=== PATIENT | female | born 1985 | race Caucasian/White ===

== ENCOUNTER 2018-05-16 10:15 | Emergency (ER) | payer SELFPAY ==
[2018-05-16] MEDS ORDERED: KETOROLAC 30 MG/ML INJ ONE (10:58)
--- NOTE | 2018-05-16 11:27 | ER ---
Nurse's Notes [facility] Name: Ira Fraser Age: 32 yrs Sex: Female : 1985 Arrival Date: 05/16/2018 Time: 10:17 Bed 14 Private MD: None, None Diagnosis: Strain of muscle, fascia and tendon at neck level Presentation: 05/16 10:29 Presenting complaint: Patient states: my neck started hurting yesterday and i can tw2 hardly turn my neck to the left. Transition of care: patient was not received from another setting of care. Onset of symptoms was May 16, 2018. Risk Assessment: Do you want to hurt yourself or someone else? Patient reports no desire to harm self or others. Initial Sepsis Screen: Does the patient meet any 2 criteria? No. Patient's initial sepsis screen is negative. Does the patient have a suspected source of infection? No. Patient's initial sepsis screen is negative. Care prior to arrival: None. 10:29 Method Of Arrival: Ambulatory tw2 10:29 Acuity: PATRICA 4 tw2 Triage Assessment: 11:50 General: Appears in no apparent distress. Behavior is calm, cooperative, appropriate tw2 for age. 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 - Social history:: Smoking status: . - Ebola Screening: : Patient denies travel to an Ebola-affected area in the 21 days before illness onset. Screenin:01 Abuse screen: Denies threats or abuse. Nutritional screening: No deficits noted. tw2 Tuberculosis screening: No symptoms or risk factors identified. Fall Risk None identified. Assessment: 10:30 General: Appears in no apparent distress. Behavior is calm, cooperative, appropriate tw2 for age. Pain: Complains of pain in left scapular area and left trapezius. Neuro: Level of Consciousness is awake, alert, obeys commands, Oriented to person, place, time, situation. Cardiovascular: Denies chest pain, shortness of breath, Patient's skin is warm and dry. Respiratory: Airway is patent Respiratory effort is even, unlabored. GI: No signs and/or symptoms were reported involving the gastrointestinal system. : No signs and/or symptoms were reported regarding the genitourinary system. EENT: No signs and/or symptoms were reported regarding the EENT system. Derm: No signs and/or symptoms reported regarding the dermatologic system. Musculoskeletal: Reports pain in left trapezius and left scapular area. 11:51 Reassessment: Patient appears in no apparent distress at this time. No changes from tw2 previously documented assessment. Patient and/or family updated on plan of care and expected duration. Pain level reassessed. Patient is alert, oriented x 3, equal unlabored respirations, skin warm/dry/pink. Vital Signs: 10:30 BP 138 / 88; Pulse 80; Resp 18; Temp 98.0(O); Pulse Ox 100% on R/A; Pain 7/10; tw2 11:51 BP 109 / 84; Pulse 79; Resp 17; Pulse Ox 100% on R/A; tw2 ED Course: 10:17 Patient arrived in ED. sb2 10:17 None, None is Private Physician. sb2 10:27 Paulo Brian PA is PHCP. cp 10:27 Paulo Haley MD is Attending Physician. cp 10:29 Johanne Garcia, RAHAT is Primary Nurse. tw2 10:30 Triage completed. tw2 10:31 Arm band placed on. tw2 10:31 Bed in low position. Call light in reach. tw2 11:52 No provider procedures requiring assistance completed. Patient did not have IV access tw2 during this emergency room visit. Administered Medications: 10:55 Drug: TORadol 60 mg Route: IM; Site: left gluteus; tw2 11:40 Follow up: Response: No adverse reaction; Pain is unchanged, physician notified tw2 11:50 Follow up: Response: No adverse reaction; Pain is unchanged, physician notified tw2 Outcome: 11:27 Discharge ordered by MD. cp 11:52 Patient left the ED. tw2 11:52 Discharged to home ambulatory. tw2 11:52 Condition: stable 11:52 Discharge instructions given to patient, Instructed on discharge instructions, follow up and referral plans. no drinking with medication, no driving heavy equipment, medication usage, Demonstrated understanding of instructions, follow-up care, medications, Prescriptions given X 2. Signatures: Paulo Brian PA PA cp Johanne Garcia, RN RN tw2 Tasia Varela sb2
--- NOTE | 2018-05-16 11:28 | EDPHYS ---
Physician Documentation [facility] Name: Ira Fraser Age: 32 yrs Sex: Female : 1985 Arrival Date: 05/16/2018 Time: 10:17 Bed 14 Private MD: None, None ED Physician Paulo Haley HPI: 05/16 10:47 This 32 yrs old Female presents to ER via Ambulatory with complaints of Neck cp Pain, >24Hrs Old. 10:47 The patient or guardian complains of decreased range of motion, pain, that is acute, cp tenderness. The symptoms are located on the left lateral neck. Onset: The symptoms/episode began/occurred yesterday. Context: started upon awakening. Associated signs and symptoms: Pertinent negatives: fever, headache, numbness, vomiting, weakness. Modifying factors: the symptoms are aggravated by turning head to left. Severity of symptoms: in the emergency department the symptoms are unchanged, despite home interventions. 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 - Social history:: Smoking status: . - Ebola Screening: : Patient denies travel to an Ebola-affected area in the 21 days before illness onset. ROS: 10:49 Eyes: Negative for injury, pain, redness, and discharge. cp 10:49 Constitutional: Negative for body aches, chills, fever, poor PO intake. 10:49 ENT: Negative for drainage from ear(s), ear pain, sore throat, difficulty swallowing, difficulty handling secretions, hoarseness. 10:49 Neck: Positive for pain with movement, pain at rest, stiffness, tenderness, Negative for injury or acute deformity. 10:49 Cardiovascular: Negative for chest pain, edema, palpitations. 10:49 Respiratory: Negative for cough, shortness of breath, wheezing. 10:49 Abdomen/GI: Negative for abdominal pain, nausea, vomiting, and diarrhea, black/tarry stool, rectal bleeding. 10:49 Back: Positive for pain at rest, pain with movement, of the left trapezius and left scapular area, Negative for injury or acute deformity. 10:49 : Negative for urinary symptoms. 10:49 MS/extremity: Negative for decreased range of motion, paresthesias. 10:49 Skin: Negative for cellulitis, rash. 10:49 Neuro: Negative for altered mental status, dizziness, headache, numbness, tingling, weakness. 10:49 All other systems are negative. Exam: 10:52 Head/Face: Normocephalic, atraumatic. cp 10:52 Constitutional: The patient appears in no acute distress, alert, awake, non-diaphoretic, non-toxic, well developed, well nourished. 10:52 Eyes: Periorbital structures: appear normal, Conjunctiva: normal, no exudate, no injection, Sclera: no appreciated abnormality, Lids and lashes: appear normal, bilaterally. 10:52 ENT: External ear(s): are unremarkable, Nose: is normal, Mouth: Lips: moist, Oral mucosa: moist, Posterior pharynx: is normal, airway is patent, no erythema, no exudate. 10:52 Neck: External neck: swelling, is not appreciated, tenderness, that is mild, left lateral neck, ROM/movement: pain, that is moderate, with rotation to the left, limited range of motion, that is moderate, when rotating to the left, Meningeal signs: are not present, nuchal rigidity, is not appreciated, Lymph nodes: no appreciated lymphadenopathy. 10:52 Chest/axilla: Inspection: normal, Palpation: is normal, no crepitus, no tenderness. 10:52 Cardiovascular: Rate: normal, Rhythm: regular, Heart sounds: murmur, not appreciated, rub, not appreciated, gallop, not appreciated, Edema: is not appreciated. 10:52 Respiratory: the patient does not display signs of respiratory distress, Respirations: normal, no use of accessory muscles, no retractions, no splinting, no tachypnea, labored breathing, is not present, Breath sounds: are clear throughout, no decreased breath sounds, no stridor, no wheezing. 10:52 Abdomen/GI: Exam negative for discomfort, distension, guarding, Inspection: abdomen appears normal. 10:52 Back: pain, that is moderate, of the left trapezius and left scapular area. 10:52 Musculoskeletal/extremity: Exam is negative for decreased range of motion, deformity, injury. 10:52 Skin: cellulitis, is not appreciated, no rash present. 10:52 Neuro: Orientation: to person, place \T\ time. Mentation: lucid, able to follow commands, Cerebellar function: is grossly normal, Motor: moves all fours, strength is normal, Sensation: no obvious gross deficits. Vital Signs: 10:30 BP 138 / 88; Pulse 80; Resp 18; Temp 98.0(O); Pulse Ox 100% on R/A; Pain 7/10; tw2 11:51 BP 109 / 84; Pulse 79; Resp 17; Pulse Ox 100% on R/A; tw2 MDM: 10:27 Patient medically screened. radha 10:45 Differential diagnosis: C-Spine Fracture Cervical Disc Herniation cervical strain, cp Spondylolisthesis torticollis. 11:25 Data reviewed: vital signs, nurses notes, and as a result, I will discharge patient. cp 11:25 Counseling: I had a detailed discussion with the patient and/or guardian regarding: the cp historical points, exam findings, and any diagnostic results supporting the discharge/admit diagnosis, to return to the emergency department if symptoms worsen or persist or if there are any questions or concerns that arise at home. Response to treatment: the patient's symptoms have mildly improved after treatment, and as a result, I will discharge patient. Administered Medications: 10:55 Drug: TORadol 60 mg Route: IM; Site: left gluteus; tw2 11:40 Follow up: Response: No adverse reaction; Pain is unchanged, physician notified tw2 11:50 Follow up: Response: No adverse reaction; Pain is unchanged, physician notified tw2 Disposition: 05/17 08:53 Co-signature as Attending Physician, Paulo Haley MD I agree with the assessment and [facility] plan of care. Disposition: 05/16/18 11:27 Discharged to Home. Impression: Strain of muscle, fascia and tendon at neck level. - Condition is Stable. - Discharge Instructions: Muscle Strain, Neck Exercises. - Prescriptions for Cyclobenzaprine 10 mg Oral Tablet - take 1 tablet by ORAL route every 8 hours As needed no driving while taking medication; 20 tablet. Anaprox DS 550 mg Oral Tablet - take 1 tablet by ORAL route every 12 hours As needed; 20 tablet. - Medication Reconciliation Form, Thank You Letter, Antibiotic Education, Prescription Opioid Use, Work release form form. - Follow up: Private Physician; When: 1 - 2 days; Reason: pain continues. - Problem is new. - Symptoms have improved. Signatures: Paulo Haley MD MD cha Page, Corey, GRISELDA PA cp Johanne Garcia, RN RN tw2 Corrections: (The following items were deleted from the chart) 05/16 10:50 10:46 Urine Test ordered. cp tw2 11:52 11:27 05/16/2018 11:27 Discharged to Home. Impression: Strain of muscle, fascia and tw2 tendon at neck level. Condition is Stable. Forms are Medication Reconciliation Form, Thank You Letter, Antibiotic Education, Prescription Opioid Use. Follow up: Private Physician; When: 1 - 2 days; Reason: pain continues. Problem is new. Symptoms have improved. cp
[2018-05-16 11:56] VITALS: TEMP 98; O2SAT 100
[2018-05-16 11:57] VITALS: BP 109/84
== END 2018-05-16 11:52 | disposition home or self-care (01) ==
LOC: ER 10:15
DX: S16.1XXA Strain of muscle, fascia and tendon at neck level, initial encounter (principal); X58.XXXA Exposure to other specified factors, initial encounter
CPT/HCPCS: 96372; 99283

== ENCOUNTER 2019-09-24 09:02 | Emergency (ER) | payer SELFPAY ==
--- NOTE | 2019-09-24 10:32 | EDPHYS ---
Physician Documentation [facility] Name: Ira Fraser Age: 34 yrs Sex: Female : 1985 Arrival Date: 09/24/2019 Time: 09:04 Bed 13 Private MD: ED Physician Pranav Marc HPI: 09/23 09:36 This 34 yrs old Female presents to ER via Ambulatory with complaints of pm1 Cough, Congestion. 09:36 The patient or guardian reports cough, itchy throat, left ear pain, and post nasal pm1 drainage. Started out as allergies and has been taking OTC medications without improvement. Onset: The symptoms/episode began/occurred 3 day(s) ago. Severity of symptoms: in the emergency department the symptoms are actually worse. Modifying factors: The symptoms are alleviated by nothing, the symptoms are aggravated by nothing. Associated signs and symptoms: Pertinent positives: earache, sore throat, Pertinent negatives: chest pain, diarrhea, fever, vomiting. 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 Historical: - Allergies: 09:29 No Known Allergies; ss - Home Meds: 09:29 None [Active]; ss - PMHx: 09:29 None; ss - PSHx: 09:29 None; ss - Immunization history:: Adult Immunizations up to date. - Social history:: Smoking status: Patient denies any tobacco usage or history of. ROS: 09:36 Constitutional: Negative for fever, chills, and weight loss, Eyes: Negative for injury, pm1 pain, redness, and discharge. 09:36 Neck: Negative for injury, pain, and swelling, Cardiovascular: Negative for chest pain, palpitations, and edema. 09:36 Abdomen/GI: Negative for abdominal pain, nausea, vomiting, diarrhea, and constipation, Back: Negative for injury and pain, MS/Extremity: Negative for injury and deformity, Skin: Negative for injury, rash, and discoloration, Neuro: Negative for headache, weakness, numbness, tingling, and seizure. 09:36 ENT: Positive for ear pain, sinus congestion, sore throat. 09:36 Respiratory: Positive for cough. Exam: 09:36 Constitutional: This is a well developed, well nourished patient who is awake, alert, pm1 and in no acute distress. Head/Face: Normocephalic, atraumatic. Eyes: Pupils equal round and reactive to light, extra-ocular motions intact. Lids and lashes normal. Conjunctiva and sclera are non-icteric and not injected. Cornea within normal limits. Periorbital areas with no swelling, redness, or edema. ENT: Nares patent. No nasal discharge, no septal abnormalities noted. Tympanic membranes are normal and external auditory canals are clear. Oropharynx with no redness, swelling, or masses, exudates, or evidence of obstruction, uvula midline. Mucous membranes moist. Neck: Trachea midline, no thyromegaly or masses palpated, and no cervical lymphadenopathy. Supple, full range of motion without nuchal rigidity, or vertebral point tenderness. No Meningismus. Chest/axilla: Normal chest wall appearance and motion. Nontender with no deformity. No lesions are appreciated. Cardiovascular: Regular rate and rhythm with a normal S1 and S2. No gallops, murmurs, or rubs. Normal PMI, no JVD. No pulse deficits. Respiratory: Lungs have equal breath sounds bilaterally, clear to auscultation and percussion. No rales, rhonchi or wheezes noted. No increased work of breathing, no retractions or nasal flaring. Abdomen/GI: Soft, non-tender, with normal bowel sounds. No distension or tympany. No guarding or rebound. No evidence of tenderness throughout. Back: No spinal tenderness. No costovertebral tenderness. Full range of motion. Skin: Warm, dry with normal turgor. Normal color with no rashes, no lesions, and no evidence of cellulitis. MS/ Extremity: Pulses equal, no cyanosis. Neurovascular intact. Full, normal range of motion. 09:36 Neuro: Orientation: is normal, Motor: is normal, moves all fours. Vital Signs: 09:26 BP 125 / 83; Pulse 87; Resp 16; Temp 98.1(TE); Pulse Ox 99% on R/A; Weight 72.57 kg; ss Height 4 ft. 11 in. (149.86 cm); Pain 4/10; 10:56 BP 118 / 78; Pulse 85; Resp 18; Temp 97.8; Pulse Ox 99% on R/A; ph 09:26 Body Mass Index 32.32 (72.57 kg, 149.86 cm) MDM: 09:24 Patient medically screened. pm1 10:29 Data reviewed: vital signs. Data interpreted: Pulse oximetry: on room air is 99 %. pm1 Interpretation: normal. Counseling: I had a detailed discussion with the patient and/or guardian regarding: the historical points, exam findings, and any diagnostic results supporting the discharge/admit diagnosis, lab results, the need for outpatient follow up, to return to the emergency department if symptoms worsen or persist or if there are any questions or concerns that arise at home. 10:32 ED course: REGULATORY COMPLIANCE COORDINATOR Aware Reviewed: No prescription data found later than 2018. pm1 09/23 09:30 Order name: Flu; Complete Time: 10:28 pm1 09/23 09:30 Order name: Strep; Complete Time: 10:28 pm1 09/23 10:14 Order name: Throat Culture EDMS Administered Medications: 10:45 Drug: SOLU-Medrol 125 mg Route: IM; Site: right deltoid; ph 10:54 Follow up: Response: No adverse reaction ph Disposition: 11:55 Co-signature as Attending Physician, Pranav Marc MD. rn Disposition: 09/24/19 10:31 Discharged to Home. Impression: Acute upper respiratory infection, unspecified. - Condition is Stable. - Discharge Instructions: Upper Respiratory Infection, Adult. - Prescriptions for Medrol (Albert) 4 mg Oral Tablets, Dose Pack - take 1 tablet by ORAL route as directed - follow package instructions; 1 packet. Guaifenesin AC 10- 100 mg/5 mL Oral Liquid - take 10 milliliter by ORAL route every 4 hours As needed; 240 milliliter. - Work release form, Medication Reconciliation Form, Thank You Letter, Antibiotic Education, Prescription Opioid Use form. - Follow up: Emergency Department; When: As needed; Reason: Worsening of condition. Follow up: Private Physician; When: 2 - 3 days; Reason: Recheck today's complaints, Continuance of care, Re-evaluation by your physician. - Problem is new. - Symptoms have improved. Signatures: Dispatcher [employer] EDMS Pranav Marc MD MD rn Smirch, Shelby, RN RN ss Hall, Patricia, RN RN Myke Stevenson, RAFFY OPAL MINER pm1 Corrections: (The following items were deleted from the chart) 10:33 10:32 ED course: REGULATORY COMPLIANCE COORDINATOR Aware Reviewed: No prescription data found earlier than 2018. pm1 pm1 11:04 10:31 09/24/2019 10:31 Discharged to Home. Impression: Acute upper respiratory ph infection, unspecified. Condition is Stable. Forms are Medication Reconciliation Form, Thank You Letter, Antibiotic Education, Prescription Opioid Use. Follow up: Emergency Department; When: As needed; Reason: Worsening of condition. Follow up: Private Physician; When: 2 - 3 days; Reason: Recheck today's complaints, Continuance of care, Re-evaluation by your physician. Problem is new. Symptoms have improved. pm1
--- NOTE | 2019-09-24 10:32 | ER ---
Nurse's Notes [facility] Name: Ira Fraser Age: 34 yrs Sex: Female : 1985 Arrival Date: 09/24/2019 Time: 09:04 Bed 13 Private MD: Diagnosis: Acute upper respiratory infection, unspecified Presentation: 09/23 09:26 Chief complaint: Patient states: cough, congestion, watery eyes, itchy throat and L ear ss pain that began 3 days ago. Coronavirus screen: The patient has NOT traveled to a country currently being monitored by the [facility] within the last 14 days. Proceed with normal triage procedures. Ebola Screen: Patient denies exposure to infectious person. Patient denies travel to an Ebola-affected area in the 21 days before illness onset. Resp Distress? No respiratory distress is noted at this time. Initial Sepsis Screen: Does the patient meet any 2 criteria? No. Patient's initial sepsis screen is negative. Does the patient have a suspected source of infection? No. Patient's initial sepsis screen is negative. Risk Assessment: Do you want to hurt yourself or someone else? Patient reports no desire to harm self or others. 09:26 Method Of Arrival: Ambulatory ss 09:26 Acuity: PATRICA 4 ss Historical: - Allergies: 09:29 No Known Allergies; ss - Home Meds: 09:29 None [Active]; ss - PMHx: 09:29 None; ss - PSHx: 09:29 None; ss - Immunization history:: Adult Immunizations up to date. - Social history:: Smoking status: Patient denies any tobacco usage or history of. Screenin:17 Abuse screen: Denies threats or abuse. Denies injuries from another. Nutritional ph screening: No deficits noted. Tuberculosis screening: No symptoms or risk factors identified. Fall Risk None identified. Assessment: 10:54 General: Appears in no apparent distress. comfortable, well groomed, Behavior is calm, ph cooperative, appropriate for age, Denies fever. Pain: Denies pain. Neuro: Level of Consciousness is awake, alert, obeys commands, Oriented to person, place, time, situation. Cardiovascular: Capillary refill < 3 seconds in bilateral fingers. Respiratory: Airway is patent Respiratory effort is even, unlabored, Breath sounds are clear bilaterally. Derm: Skin is intact, Skin is pink, warm \T\ dry. Vital Signs: 09:26 BP 125 / 83; Pulse 87; Resp 16; Temp 98.1(TE); Pulse Ox 99% on R/A; Weight 72.57 kg; Height 4 ft. 11 in. (149.86 cm); Pain 4/10; 10:56 BP 118 / 78; Pulse 85; Resp 18; Temp 97.8; Pulse Ox 99% on R/A; ph 09:26 Body Mass Index 32.32 (72.57 kg, 149.86 cm) ED Course: 09:04 Patient arrived in ED. rg4 09:15 Antonieta Aguila, RN is Primary Nurse. ph 09:16 Myke Freitas NP is [facility]. pm1 09:16 Pranav Marc MD is Attending Physician. pm1 09:18 Patient has correct armband on for positive identification. Bed in low position. Call ph light in reach. Side rails up X 1. Pulse ox on. NIBP on. Door closed. Noise minimized. Warm blanket given. 09:28 Triage completed. 09:29 Arm band placed on right wrist. 09:56 Strep Sent. 3 09:56 Flu Sent. 3 11:02 No provider procedures requiring assistance completed. Patient did not have IV access ph during this emergency room visit. Administered Medications: 10:45 Drug: SOLU-Medrol 125 mg Route: IM; Site: right deltoid; ph 10:54 Follow up: Response: No adverse reaction ph Outcome: 10:31 Discharge ordered by MD. pm1 11:03 Discharged to home ambulatory. ph 11:03 Condition: good 11:03 Discharge instructions given to patient, Instructed on discharge instructions, follow up and referral plans. medication usage, Demonstrated understanding of instructions, follow-up care, medications, Prescriptions given X 2. 11:04 Patient left the ED. ph Signatures: aSra Starkey RN RN Antonieta Aguila, RAHAT RN Myke Freitas, RAFFY MARBLE POLISHER pm1 Angie Ferris 4 Courtney Ferro 3
[2019-09-24] MEDS ORDERED: METHYLPREDNISOLONE 125 MG INJ ONE (10:45)
[2019-09-24 11:10] VITALS: O2SAT 99
[2019-09-24 11:11] VITALS: BP 118/78; TEMP 97.8
== END 2019-09-24 11:04 | disposition home or self-care (01) ==
LOC: ER 09:02
DX: J06.9 Acute upper respiratory infection, unspecified (principal)
CPT/HCPCS: 87070; 87081; 87804; 96372; 99284; J2930

== ENCOUNTER 2019-12-03 12:05 | Emergency (ER) | payer OTHER, SELFPAY ==
--- NOTE | 2019-12-03 14:32 | EDPHYS ---
Physician Documentation [facility] Name: Ira Fraser Age: 34 yrs Sex: Female : 1985 Arrival Date: 12/03/2019 Time: 12:10 Bed 27 Private MD: ED Physician Pranav Marc HPI: 12/02 14:28 This 34 yrs old Female presents to ER via Ambulatory with complaints of Skin cp Problem. 14:28 The patient's rash thought to be caused by an unknown cause. cp 14:28 The rash is located on the brock area and chin. cp 14:28 Onset: The symptoms/episode began/occurred last week. cp 14:28 The rash can be described as erythematous. Associated signs and symptoms: Pertinent cp negatives: fever. Treatment given at home: OTC Lotrimin cream. 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 - Social history:: Smoking status: Patient denies any tobacco usage or history of. ROS: 14:29 Skin: Positive for rash, of the brock area and chin of face. cp 14:29 Constitutional: Negative for fever. cp 14:29 All other systems are negative. Exam: 14:30 Constitutional: The patient appears in no acute distress, alert, awake, non-toxic, well cp developed, well nourished. 14:30 Head/face: Noted is rash, of the brock area and chin. cp 14:30 Skin: cellulitis, that is mild, on the brock area and chin. Vital Signs: 12:20 BP 118 / 86; Pulse 105; Resp 15; Temp 97.8(TE); Pulse Ox 99% on R/A; Weight 72.57 kg; ss Height 4 ft. 11 in. (149.86 cm); Pain 0/10; 14:47 BP 118 / 86; Pulse 90; Resp 16; Temp 97.8; Pulse Ox 99% ; ll1 12:20 Body Mass Index 32.32 (72.57 kg, 149.86 cm) MDM: 14:27 Patient medically screened. cp 14:30 Differential diagnosis: impetigo, cellulitis, abscess, acne. cp 14:31 Data reviewed: vital signs, nurses notes, and as a result, I will discharge patient. cp Administered Medications: No medications were administered Disposition: 14:35 Chart complete. cp Disposition: 12/03/19 14:31 Discharged to Home. Impression: Local infection of the skin and subcutaneous tissue, unspecified. - Condition is Stable. - Discharge Instructions: Staphylococcal Infection. - Prescriptions for Bactroban 2 % Topical Ointment - Apply to affected area 1 application by TOPICAL route every 12 hours; 30 gram. Clindamycin HCl 300 mg Oral Capsule - take 1 capsule by ORAL route every 8 hours for 10 days; 30 capsule. - Medication Reconciliation Form, Thank You Letter, Antibiotic Education, Prescription Opioid Use form. - Follow up: Private Physician; When: 2 - 3 days; Reason: Worsening of condition. - Problem is new. - Symptoms are unchanged. Addendum: 12/10/2019 07:06 Co-signature as Attending Physician, Pranav Marc MD. r n Signatures: Pranav Marc MD MD rn Smirch, Shelby, RN RN ss Paulo Brian PA PA cp Ankit Mcgrath RN RN ll1 Corrections: (The following items were deleted from the chart) 12/02 14:48 14:31 12/03/2019 14:31 Discharged to Home. Impression: Local infection of the skin and ll1 subcutaneous tissue, unspecified. Condition is Stable. Forms are Medication Reconciliation Form, Thank You Letter, Antibiotic Education, Prescription Opioid Use. Follow up: Private Physician; When: 2 - 3 days; Reason: Worsening of condition. Problem is new. Symptoms are unchanged. cp
--- NOTE | 2019-12-03 14:32 | ER ---
Nurse's Notes [facility] Name: Ira Fraser Age: 34 yrs Sex: Female : 1985 Arrival Date: 12/03/2019 Time: 12:10 Bed 27 Private MD: Diagnosis: Local infection of the skin and subcutaneous tissue, unspecified Presentation: 12/02 12:20 Chief complaint: Patient states: rash to lower face that began last week. Pt states, ss "I'm 95% sure I have impetigo.". Coronavirus screen: Proceed with normal triage. Patient denies a cough. Patient denies shortness of breath or difficulty breathing. Patient denies measured and/or subjective temperature greater than 100.4F prior to today's visit. Patient denies travel on a cruise ship or to a country the [facility] currently lists as an affected area. Patient denies contact with known and/or suspected case of COVID-19. Ebola Screen: Patient denies exposure to infectious person. Patient denies travel to an Ebola-affected area in the 21 days before illness onset. Initial Sepsis Screen: Does the patient meet any 2 criteria? HR > 90 bpm. Does the patient have a suspected source of infection? No. Patient's initial sepsis screen is negative. Risk Assessment: Do you want to hurt yourself or someone else? Patient reports no desire to harm self or others. Onset of symptoms was November 2019. 12:20 Method Of Arrival: Ambulatory ss 12:20 Acuity: PATRICA 5 ss CLINICAL SPECIALIST: 14:47 LMP N/A - control method ll1 Historical: - Allergies: 12:21 No Known Allergies; ss - Home Meds: 12:21 None [Active]; ss - PMHx: 12:21 None; ss - PSHx: 12:21 Tubal ligation; D \\T\\ C; ss - Immunization history:: Adult Immunizations up to date. - Social history:: Smoking status: Patient denies any tobacco usage or history of. Screenin:57 Abuse screen: Denies threats or abuse. Nutritional screening: No deficits noted. ll1 Tuberculosis screening: No symptoms or risk factors identified. Fall Risk None identified. Total Malik Fall Scale indicates No Risk (0-24 pts). Assessment: 13:00 General: Appears in no apparent distress. Behavior is calm, cooperative. Pain: ll1 Complains of pain in chin Quality of pain is described as aching, Pain began about 1 week. Neuro: No deficits noted. Cardiovascular: No deficits noted. Respiratory: No deficits noted. Derm: Wound noted chin area rash/small abscesses to chin area for 1 week. Family member was diagnosed with impetigo recently, thought it might be that. Reports pain. Vital Signs: 12:20 BP 118 / 86; Pulse 105; Resp 15; Temp 97.8(TE); Pulse Ox 99% on R/A; Weight 72.57 kg; Height 4 ft. 11 in. (149.86 cm); Pain 0/10; 14:47 BP 118 / 86; Pulse 90; Resp 16; Temp 97.8; Pulse Ox 99% ; ll1 12:20 Body Mass Index 32.32 (72.57 kg, 149.86 cm) ED Course: 12:10 Patient arrived in ED. mr 12:21 Triage completed. 12:21 Arm band placed on left wrist. 12:23 Ankit Mcgrath, RN is Primary Nurse. ll1 12:57 Patient has correct armband on for positive identification. Bed in low position. Call ll1 light in reach. Side rails up X 1. 13:51 Paulo Brian PA is PHCP. cp 13:51 Pranav Marc MD is Attending Physician. cp 14:47 No provider procedures requiring assistance completed. Patient did not have IV access ll1 during this emergency room visit. Administered Medications: No medications were administered Outcome: 14:31 Discharge ordered by MD. cp 14:47 Discharged to home ambulatory. ll1 14:47 Condition: stable 14:47 Discharge instructions given to patient, Instructed on discharge instructions, follow up and referral plans. medication usage, wound care, Demonstrated understanding of instructions, follow-up care, medications, wound care, Prescriptions given X 2. 14:48 Patient left the ED. ll1 Signatures: Davina Hawley Shelby, RN RN Paulo Brian PA PA cp Ankit Mcgrath RN RN 1
[2019-12-03 16:11] VITALS: BP 118/86; TEMP 97.8; O2SAT 99
== END 2019-12-03 14:48 | disposition home or self-care (01) ==
LOC: ER 12:05
DX: L03.211 Cellulitis of face (principal); L08.9 Local infection of the skin and subcutaneous tissue, unspecified
CPT/HCPCS: 99282

== ENCOUNTER 2025-02-25 11:16 | Emergency (ER) | payer BC, OTHER ==
--- OUTSIDE RECORDS SUMMARY | 2025-02-25 11:19 | XMS REPORT | Continuity of Care Document ---
Author Name Unknown Address [address] [place] [address] [facility] Address [address] [place] [address] Care Team Providers Care Mold Clamper Name Role Phone PCP, PATIENT DOES NOT HAVE A Primary Care Physic doris Unavailable Zachery Llamas Attending Clinician + ZACHERY PLATT Attending Clinician Unavail able Payers Payer Name Policy Type Policy Number Effective Date Expirati on Date Source HIM BC BLUE ADVANTAGE O [id number] 2024 00:00:00 W-RMP [id number] 2024 00:00:00 Problems Condition Name Condition Details Condition Category Status Onset Date Resolution Date Last Treatment Date Treating Clinician Comments Source Well woman exam Well woman exam Disease Active 09-17 00:00: 00 [facility] History of tubal ligation History of tubal ligation Disease Active 09-17 00:00: 00 [facility] Over weight Over weight Disease Active 09-17 00:00: 00 [facility] Allergies, Adverse Reactions, Alerts Allergy Name Allergy Type Status Severity Reaction(s) Onset Date Inactive Date Treating Clinician Comments Source NO KNOWN ALLERGIE S Drug Class Active [facility] Social History Social Habit Start Date Stop Date Quantity Comments Source [facility] Tobacco use and exposure 2024-09-17 00:00:00 2024-09-17 00:00:00 Smokeless tobacco non-user [facility] Alcoholic beverage intake 2024-09-17 00:00:00 2024-09-17 00:00:00 Ex-drinker (finding) [facility] History of Social function 2024-09-17 00:00:00 2024-09-17 00:00:00 [facility] Sex assigned at 1985 00:00:00 1985 00:00:00 [facility] Smoking Status Start Date Stop Date Source Never smoked tobacco [facility] Medications Ordered Medication Name Filled Medication Name Start Date Stop Date Current Medication? Ordering Clinician Indication Dosage Frequency Signature (SIG) Comments Components Source doxycycline hyclate 100 mg tablet 05 00:00: 00 09-27 04:59 :00 No [id number] 100mg Take 1 tablet by mouth in the morning and 1 tablet in the evening. Do all this for 7 days. [facility] Immunizations Ordered Immunization Name Filled Immunization Name Date Status Comments Source HPV9 2024-09-17 00:00:00 Completed [facility] Vital Signs Vital Name Observation Time Observation Value Comments S ource Systolic blood pressure 2024-09-17 13:57:00 111 mm[Hg] [facility] Diastolic blood pressure 2024-09-17 13:57:00 80 mm[Hg] [facility] hospital Heart rate 2024-09-17 13:57:00 82 /min [facility] Body temperature 2024-09-17 13:57:00 36.56 Estephanie [facility] Respiratory rate 2024-09-17 13:57:00 18 /min [facility] Body height 2024-09-17 13:57:00 149.9 cm [facility] Body weight 2024-09-17 13:57:00 60.045 kg [facility] BMI 2024-09-17 13:57:00 26.74 kg/m2 [facility] Procedures Procedure Date / Time Performed Performing Clinicia n Source GARDASIL 9 (HPV 9V) VACCINE 2024-09-17 14:49:03 Zachery Platt [facility] Encounters Start Date/Time End Date/Time Encounter Type Admission Type Attending Clinicians Care Facility Care Department Encounter ID Source 2024-12-20 08:45:00 2024-12-20 08:45:00 Outpatient R [facility] [id number] [facility] 2024-11-19 08:00:00 2024-11-19 08:00:00 Outpatient R [facility] [id number] [facility] 2024-09-19 00:00:00 2024-09-19 14:50:13 Telephone Zachery Platt [facility] [id number] [facility] 2024-09-17 07:45:00 2024-09-17 08:54:34 Office Visit Zachery Platt [facility] PL[facility] [id number] [facility] 2024-09-17 07:45:00 2024-09-17 08:54:34 Outpatient R ZACHERY PLATT [facility] [id number] [facility] Notes Date/Time Note Provider Source 2024-09-19 14:47:18 Notified the patient of her positive STI results chlamydia. Notified the patient her medication has been sent to her pharmacy on file. Educated patient she should complete the entire course, advised patient to practice safe sex practices and to remain abstinent for at least 1-2 weeks post treatment. Patient desires to have partner treated, will send his information through atCollab message. Offered std pamphlet for partner education. Patient declinedstd pamphlet to be mailed to partner. Advised patient on HIV testing if she has not recently been tested. Advised SINAN appointment in 3 months. Pt verbalized understanding. NDER HONER Dolores Ferris LVN [facility] 2024-09-19 14:36:40 Pt returning missed call. OLN Galaviz [facility] 2024-09-19 14:29:37 Attempted to call patient, no answer, left vm. [facility] 2024-09-19 14:24:12 Please notify the patient of her positive STI results. Please notify the patient her medication has been sent to her pharmacy on file. She should complete the entire course.Please advise her on safe sex practices and to remain abstinent for at least 1-2 weeks post treatment. Her partner can be treated and tested per protocol. If she is not she will need a SINAN in 3 months, and advise her on HIV testing if she has not recently been tested. BRENT Wong 09/19/2024 2:24 PM [facility]
--- NOTE | 2025-02-25 11:32 | EDPHYS ---
Physician Documentation [facility] Name: Ira Fraser Age: 39 yrs Sex: Female : 1985 Arrival Date: 02/25/2025 Time: 11:16 Bed 12 Private MD: Paulo Chavez HPI: 02/25 11:56 This 39 yrs old Female presents to ER via Ambulatory with complaints of Rash - ALL OVER.sb4 11:56 The patient's rash thought to be caused by an unknown cause. The rash is located on the sb4 body diffusely. Onset: The symptoms/episode began/occurred this morning. Associated signs and symptoms: Pertinent negatives: swelling of lips, swelling of throat, swelling of tongue. Treatment given at home: OTC lotion/cream. 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 - Infectious Disease History:: Denies. - Social history:: Smoking status: Reported history of juuling and/or vaping. ROS: 11:56 Constitutional: Negative for fever, chills, and weight loss, sb4 11:56 Skin: Positive for rash, 11:56 All other systems are negative, Exam: 11:56 Constitutional: This is a well developed, well nourished patient who is awake, alert, sb4 and in no acute distress. Head/Face: Normocephalic, atraumatic. Eyes: Extra-ocular motions intact. Periorbital areas with no swelling, redness, or edema. ENT: Mucous membranes moist. Respiratory: No increased work of breathing, no retractions or nasal flaring. 11:56 Skin: contact dermatitis, and is diffusely located, Vital Signs: 11:23 BP 150 / 102; Pulse 86; Resp 16; Temp 98.1; Pulse Ox 100% on R/A; Weight 59.87 kg; Pain dd2 0/10; 11:23 Pain Scale: Adult dd2 MDM: 11:23 Medical Screening Exam initiated sb4 11:56 Differential diagnosis: impetigo, varicella, allergic reaction, parasite infection, sb4 carcinoma. Data reviewed: vital signs, nurses notes, and as a result, I will discharge patient. Counseling: I had a detailed discussion with the patient and/or guardian regarding the historical points, exam findings, and any diagnostic results supporting the discharge/admit diagnosis, the need for outpatient follow up, for definitive care, to return to the emergency department if symptoms worsen or persist or if there are any questions or concerns that arise at home. 11:57 Counseling: I had a detailed discussion with the patient and/or guardian regarding the sb4 presence of at least one elevated blood pressure reading (>120/80) during this emergency department visit. Administered Medications: 11:43 Drug: MethylPREDNISolone Sodium Succinate IM 60 mg IM once Route: IM; Site: right ll1 gluteus; 12:00 Follow up: Response: No adverse reaction ll1 11:43 Drug: Famotidine PO 20 mg PO once Route: PO; ll1 12:00 Follow up: Response: No adverse reaction ll1 11:44 Drug: Cetirizine PO 10 mg PO once Route: PO; ll1 12:00 Follow up: Response: No adverse reaction ll1 Disposition Summary: 02/25/25 11:32 Discharge Ordered Notes: Location: Home sb4 Problem: new sb4 Symptoms: have improved sb4 Condition: Stable sb4 Diagnosis - Rash and other nonspecific skin eruption sb4 Followup: sb4 - With: Emergency Department - When: As needed - Reason: Trouble breathing, Worsening of condition Discharge Instructions: - Discharge Summary Sheet sb4 - Rash, Adult, [id number] sb4 - Contact Dermatitis, Stvz-kb-Arow sb4 Forms: - Work release form ll1 - Patient Portal Instructions sb4 - Leadership Thank You Letter sb4 Prescriptions: - Pepcid 20 mg Oral Tablet - take 1 tablet ORAL route every 12 hours for 5 days; 10 tablet; Refills: 0, sb4 Product Selection Permitted - Prednisone 20 mg Oral Tablet - take 1 tablet ORAL route once daily for 5 days; 5 tablet; Refills: 0, Product sb4 Selection Permitted - Loratadine 10 mg Oral Tablet - take 1 tablet ORAL route once daily; 14 tablet; Refills: 0, Product Selection sb4 Permitted Addendum: 02/28/2025 14:40 Co-signature as Attending Physician, Paulo Haley MD I agree with the assessment and c lloyd plan of care. Signatures: Paulo Haley MD MD cha Lewis, Lynsay, RN RN ll1 Mahsa Nguyễn PA-C PA-C sb4 MELODY SAMSON RN RN dd2
--- NOTE | 2025-02-25 11:32 | ER ---
Nurse's Notes [facility] Name: Ira Fraser Age: 39 yrs Sex: Female : 1985 Arrival Date: 02/25/2025 Time: 11:16 Bed 12 Private MD: Diagnosis: Rash and other nonspecific skin eruption Presentation: 02/25 11:23 Chief complaint: Patient states: WOKE UP THIS MORNING WITH A RASH ON NECK, CHEST , dd2 STOMACH, ARMS. PT REPORTS BURNING AND ITCHING. REPORTS ALLERGIC POISON CLAUDE AND SUMAC. Coronavirus screen: At this time, the client does not indicate any symptoms associated with coronavirus-19. Ebola Screen: No symptoms or risks identified at this time. Initial Sepsis Screen: Does the patient meet any 2 criteria? No. Patient's initial sepsis screen is negative. Does the patient have a suspected source of infection? No. Patient's initial sepsis screen is negative. Risk Assessment: Do you want to hurt yourself or someone else? Patient reports no desire to harm self or others. Onset of symptoms was February 25, 2025. 11:23 Method Of Arrival: Ambulatory dd2 11:23 Acuity: PATRICA 4 dd2 Triage Assessment: 11:24 General: Appears in no apparent distress. uncomfortable, Behavior is calm, cooperative, dd2 appropriate for age. Pain: Denies pain. Derm: Rash noted that is itchy, red, raised, on chest, right arm and neck. [employer]: 11:24 LMP 02/15/2025, unknown dd2 Historical: - Allergies: 11:24 No Known Allergies; dd2 - PMHx: 11:24 None; dd2 - PSHx: 11:24 D\T\C; dd2 - Immunization history:: Adult Immunizations up to date. - Infectious Disease History:: Denies. - Social history:: Smoking status: Reported history of juuling and/or vaping. Screenin:[address] [facility] ED Fall Risk Assessment (Adult) History of falling in the last 3 months, ll1 including since admission No falls in past 3 months (0 pts) Confusion or Disorientation No (0 pts) Intoxicated or Sedated No (0 pts) Impaired Gait No (0 pts) Mobility Assist Device Used No (0 pt) Altered Elimination No (0 pt) Score/Fall Risk Level 0 - 2 = Low Risk Maintained a safe environment, Hourly rounding (assess needs \T\ fall precautionary measures) done. Abuse screen: Denies threats or abuse. Nutritional screening: No deficits noted. Tuberculosis screening: No symptoms or risk factors identified. Assessment: 12:00 Reassessment: No changes from previously documented assessment. Patient and/or family ll1 updated on plan of care and expected duration. Pain level reassessed. Patient is alert, oriented x 3, equal unlabored respirations, skin warm/dry/pink. Vital Signs: 11:23 BP 150 / 102; Pulse 86; Resp 16; Temp 98.1; Pulse Ox 100% on R/A; Weight 59.87 kg; Pain dd2 0/10; 11:23 Pain Scale: Adult dd2 ED Course: 11:20 Patient arrived in ED. cj3 11:21 Mahsa Nguyễn PA-C is PHCP. sb4 11:21 Paulo Haley MD is Attending Physician. sb4 11:24 Triage completed. dd2 11:24 Arm band placed on right wrist. dd2 11:24 Patient has correct armband on for positive identification. Bed in low position. ll1 Provided Education on: ER procedures and process. 11:45 Ankit Mcgrath, RN is Primary Nurse. ll1 12:01 No provider procedures requiring assistance completed. Patient did not have IV access ll1 during this emergency room visit. Administered Medications: 11:43 Drug: MethylPREDNISolone Sodium Succinate IM 60 mg IM once Route: IM; Site: right ll1 gluteus; 12:00 Follow up: Response: No adverse reaction ll1 11:43 Drug: Famotidine PO 20 mg PO once Route: PO; ll1 12:00 Follow up: Response: No adverse reaction ll1 11:44 Drug: Cetirizine PO 10 mg PO once Route: PO; ll1 12:00 Follow up: Response: No adverse reaction ll1 Medication: 12:08 VIS not applicable for this client. ll1 Outcome: 11:32 Discharge ordered by . sb4 12:01 Patient left the ED. ll1 12:01 Discharged to home ambulatory, ll1 12:01 Condition: stable 12:01 Discharge instructions given to patient, Instructed on discharge instructions, follow up and referral plans. medication usage, Demonstrated understanding of instructions, follow-up care, medications, Prescriptions given X 3, Signatures: Ankit Mcgrath, RN RN ll1 Mahsa Nguyễn, BEN CONTRERAS sb4 MELODY SAMSON RN RN dd2 Carmen Leger cj3
[2025-02-25] MEDS ORDERED: FAMOTIDINE 20 MG TAB ONE (11:35)
[2025-02-25] MEDS ORDERED: CETIRIZINE HCL 5 MG TABLET ONE (11:35)
[2025-02-25] MEDS ORDERED: METHYLPREDNISOLONE 125 MG INJ ONE (11:35)
[2025-02-25 12:06] VITALS: BP 150/102; TEMP 98.1; O2SAT 100
== END 2025-02-25 12:01 | disposition home or self-care (01) ==
LOC: ER 11:16
DX: R21 Rash and other nonspecific skin eruption (principal)
CPT/HCPCS: 96372; 99284; J2919